=== PATIENT | male | born 1980 | race Caucasian/White ===

== ENCOUNTER 2018-10-27 15:44 | Emergency (ER) | payer MEDICARE, MEDICAID ==
[2018-10-27 16:07] VITALS: BP 130/81
--- NOTE | 2018-10-27 16:41 | EDM.PDOC ---
ED HPI GENERAL MEDICAL PROBLEM - General Chief Complaint: Bite:Animal, Insect Time Seen by Provider: 10/27/18 16:17 History Limitations: Reports: No Limitations - History of Present Illness INITIAL COMMENTS - FREE TEXT/NARRATIVE: 38 yo male presents with multiple erythemic and raised insect bites to bilateral legs. initially noticed very itchy hives 2 days ago. generally healthy Bilateral Lower Leg Pain Score (Numeric/FACES): 6 - Related Data Allergies Allergy/AdvReac Type Severity Reaction Status Date / Time venom-honey bee Allergy Swelling Verified 07/25/13 07:11 [bee venom (honey bee)] Home Meds: Home Meds Phenylephrine/Dm/Acetaminop/Gg [Tylenol Cold & Flu Severe Cplt] 2 tab PO Q6H PRN 08/22/14 [History] Past Medical History - Past Health History Medical/Surgical History: Denies Medical/Surgical History Social & Family History - Tobacco Use Smoking Status *Q: Current Every Day Smoker Years of Tobacco use: 20 Packs/Tins Daily: 1.5 - Caffeine Use Caffeine Use: Reports: Coffee, Energy Drinks, Soda, Tea - Recreational Drug Use Recreational Drug Use: Yes Drug Use in Last 12 Months: Yes Recreational Drug Type: Reports: Marijuana/Hashish Recreational Drug Use Frequency: Socially ED ROS GENERAL - Review of Systems Review Of Systems: See Below Constitutional: Denies: Fever, Chills Respiratory: Denies: Shortness of Breath, Wheezing Cardiovascular: Denies: Chest Pain ED EXAM, ANIMAL BITE - Physical Exam Exam: See Below Exam Limited By: No Limitations General Appearance: Alert, WD/WN, No Apparent Distress Respiratory/Chest: No Respiratory Distress, Lungs Clear, Normal Breath Sounds, No Accessory Muscle Use, Chest Non-Tender. No: Crackles, Rhonchi, Wheezing Cardiovascular: Normal Peripheral Pulses, Regular Rate, Rhythm, No Edema, No Murmur Skin Exam: Rash (multiple hives with center vector surrounding erythema with edema, multiple lesions have large surroudning erythema) Course - Vital Signs Last Recorded V/S: Last Vital Signs Temp 35.3 C 10/27/18 16:17 Pulse 106 H 10/27/18 16:17 Resp 16 10/27/18 16:17 BP 130/81 10/27/18 16:17 Pulse Ox 98 10/27/18 16:17 Departure - Departure Time of Disposition: 16:36 Disposition: Home, Self-Care 01 Condition: Good Clinical Impression: Insect bite of leg, infected Qualifiers: Encounter type: initial encounter Laterality: left Qualified Code(s): S80.862A - Insect bite (nonvenomous), left lower leg, initial encounter - Discharge Information *PRESCRIPTION DRUG MONITORING PROGRAM REVIEWED*: Not Applicable *COPY OF PRESCRIPTION DRUG MONITORING REPORT IN PATIENT RO: Not Applicable Instructions: Animal Bite, Adult, [id number] Referrals: PCP,None [Primary Care Provider] - Forms: ED Department Discharge Additional Instructions: keflex twice daily for 7 days Benadryl for itching if more bites develop then you need to evaluate for bed bugs
== END 2018-10-27 16:54 | disposition home or self-care (01) ==
LOC: JP.ED 15:44
DX: S80.862A Insect bite (nonvenomous), left lower leg, initial encounter (principal); F17.210 Nicotine dependence, cigarettes, uncomplicated; Z79.899 Other long term (current) drug therapy; Z91.030 Bee allergy status; W57.XXXA Bitten or stung by nonvenomous insect and other nonvenomous arthropods, initial encounter
CPT/HCPCS: 99282